=== PATIENT | male | born 1990 | race African-American/Black ===

== ENCOUNTER 2018-07-02 06:39 | Emergency (ER) | payer OTHER ==
[~2018-07-02] VITALS: Ht 193 cm; Wt 109.1 kg
[2018-07-02] MEDS ORDERED: MORPHINE 4 MG/ML 1ML VIAL/SYRINGE (J2270) IV PRN (07:30)
[2018-07-02] MEDS ORDERED: NS 1,000 ML IV ONE (07:30)
[2018-07-02 07:34] LABS: BASO % 0.4 % (0.0-1.0); EOS # 0.2 10^3/uL (0.0-0.50); EOS % 3.4 % (0.0-3.0); HEMOGLOBIN 15.2 g/dl (13.5-17.5); LYMPH # 2.4 10^3/uL (1.5-6.5); LYMPH % 35.8 % (24.0-44.0); MEAN CORPUSCULAR HEMOGLOBIN 28.7 pg (27.0-33.0); MEAN CORPUSCULAR VOLUME 86.8 fl (80.0-96.0); MONO % 14.6 % (0.0-5.0); NEUTROPHILS # 3.1 10^3/uL (1.8-7.7); NEUTROPHILS % 45.5 % (36.0-66.0); PLATELET COUNT, AUTOMATED 239 10^3/uL (150-450); WHITE BLOOD COUNT 6.8 10^3/uL (4.0-10.0)
[2018-07-02 07:46] LABS: ALBUMIN 3.7 GM/DL (3.2-5.2); ALT/SGPT 39 U/L (12-78); BILIRUBIN,DIRECT 0.2 MG/DL (0.0-0.2); BILIRUBIN,TOTAL 0.6 MG/DL (0.2-1.0); BLOOD UREA NITROGEN 9 MG/DL (7-18); CALCIUM LEVEL 9.1 MG/DL (8.5-10.1); CARBON DIOXIDE LEVEL 23 MEQ/L (21-32); CHLORIDE LEVEL 106 MEQ/L (98-107); CREATININE FOR GFR 0.96 MG/DL (0.70-1.30); GLOMERULAR FILTRATION RATE > 60.0 (>60); GLUCOSE, FASTING 90 MG/DL (70-100); SODIUM LEVEL 139 MEQ/L (136-145); TOTAL PROTEIN 7.1 GM/DL (6.4-8.2)
[2018-07-02 07:52] LABS: INR 1.05; PARTIAL THROMBOPLASTIN TIME 29.7 SECONDS (25.4-37.6); PROTHROMBIN TIME 13.8 SECONDS (12.1-14.4)
[2018-07-02] MEDS ORDERED: ISOVUE-370 76% 100ML VIAL (Q9967) As Ordered ONE (07:56)
--- NOTE | 2018-07-02 08:32 | REP ---
Head CT without contrast: History: Trauma. Comparison study: No comparison. CT findings: Bone window settings demonstrate an intact bony calvarium. There is no evidence of skull fracture or incidental bony calvarial lesion. The visualized paranasal sinuses appear clear. No intraorbital abnormality is seen. On soft tissue window setting images; the lateral, third, and fourth ventricles are normal in size and position. Arzate-white differentiation pattern is normal above and below the tentorium. There are is no evidence of intracranial hemorrhage. No mass, edema, infarction, or midline shift is seen. No extra-axial fluid collection is appreciated. Impression: Negative noncontrast head CT. Electronically Signed by Shawn Padilla MD 07/02/2018 08:24 A
--- NOTE | 2018-07-02 08:33 | REP ---
CT study of the cervical spine without contrast: History: Trauma. Technique: Helical scanning is acquired and overlapping 2 mm high resolution axial images were generated and reviewed at bone and soft tissue window settings. Coronal and sagittal multiplanar re-formations images are generated. CT findings: There is no evidence of cervical spine element fracture. No skull base fracture is seen. Cervical vertebral body heights are preserved. Alignment is normal. Facet joints are normally aligned bilaterally at each cervical level on multiplanar re-formations images. There is no evidence of intraspinal or paraspinal hematoma. No extra vertebral abnormality is seen. Impression: Negative CT study of the cervical spine without contrast. No fracture seen. Electronically Signed by Shawn Padilla MD 07/02/2018 08:25 A
--- NOTE | 2018-07-02 08:34 | REP ---
Clinical: Trauma. Technique: Axial contrast enhanced images from the lung bases to the pubic symphysis using 100 ml Isovue 370 intravenous contrast material with coronal and sagittal re-formations. Findings: No evidence for solid organ injury. Liver, spleen, pancreas, gallbladder, bilateral adrenal glands and kidneys are normal. The enteric system is without obstruction or acute inflammatory process. Normal terminal ileum and appendix are identified in the right lower quadrant. Pelvis demonstrates normal bladder and age appropriate prostate/seminal vesicles. Multiple phleboliths noted in the pelvis. Abdominal aorta and vasculature appears normal. Lung bases are clear. Visualized heart and pericardium are normal. Musculoskeletal structures are intact and without evidence for acute trauma/injury. Impression: No acute abdominopelvic pathology appreciated. No abdominal pelvic trauma/injury identified. Electronically Signed by Luis Daniel Price MD 07/02/2018 08:25 A
--- NOTE | 2018-07-02 08:38 | REP ---
Clinical: Trauma. Technique: Axial contrast enhanced images from the thoracic inlet to the upper abdomen with coronal and sagittal re-formations using 100 ml Isovue 370 intravenous contrast material. Findings: The bilateral lung khan are well-aerated and without consolidation/contusion, pleural effusion, or pneumothorax. Minimal posterior basilar dependent changes are identified. The tracheobronchial tree is patent. The mediastinum is normal in appearance and without acute pathology or trauma/injury. Thoracic aorta, pulmonary vasculature and heart/pericardium are normal. No axillary, hilar, or mediastinal adenopathy noted. Musculoskeletal structures demonstrate evidence for old right clavicle fracture without evidence for acute trauma/injury. Impression: 1. No acute mediastinal or pleuroparenchymal process and no evidence for acute trauma/injury. 2. Old healed right clavicle fracture. Electronically Signed by Luis Daniel Price MD 07/02/2018 08:30 A
[2018-07-02 08:52] VITALS: BP 145/74
== END 2018-07-02 09:19 | disposition home or self-care (01) ==
LOC: M ED 06:39 → EDBD 06:39 → M ED 09:19
DX: S20.211A Contusion of right front wall of thorax, initial encounter (principal); V43.52XA Car driver injured in collision with other type car in traffic accident, initial encounter; Y92.9 Unspecified place or not applicable; Y93.9 Activity, unspecified; Y99.9 Unspecified external cause status; Z91.030 Bee allergy status
CPT/HCPCS: 36415; 70450; 71260; 72125; 74177; 80048; 80076; 85025; 85610; 85730; 93041; 94760; 96374; 99284; J2270; Q9967